=== PATIENT | female | born 1980 | race Two or more races ===

== ENCOUNTER 2018-11-06 13:56 | Emergency (ER) | payer MEDICAID, OTHER ==
[~2018-11-06] VITALS: Ht 157.5 cm; Wt 92.5 kg
[2018-11-06 14:47] LABS: Urine Bacteria FEW /hpf (None Seen); Urine Blood Negative /uL (Negative); Urine Mucus MODERATE (None Seen); Urine Specific Gravity 1.031 (1.001-1.035); Urine WBC 9 /hpf (0 - 5)
[2018-11-06 18:09] VITALS: BP 125/84
== END 2018-11-06 18:15 | disposition home or self-care (01) ==
LOC: ER 13:56
DX: O23.42 Unspecified infection of urinary tract in pregnancy, second trimester (principal); O44.02 Complete placenta previa NOS or without hemorrhage, second trimester; Z3A.16 16 weeks gestation of pregnancy
CPT/HCPCS: 36415; 76805; 81001; 81025; 84702

== ENCOUNTER 2019-04-12 13:30 | Inpatient (IN) | payer MEDICAID ==
[2019-04-12] VITALS (12 sets, daily range): BP systolic 13–155; BP diastolic 60–75
[~2019-04-12] VITALS: Ht 33 cm; Wt 0.5 kg
[2019-04-12] MEDS ORDERED: LACTATED RINGER'S 1,000 ML IV SCH (13:53)
[2019-04-12] MEDS ORDERED: TETRACAINE 1% INJ 2 ML VIAL IJ ONE (14:17)
[2019-04-12 14:34] LABS: Albumin 2.6 g/dL (3.4-5.0); Anion Gap 11 (5-15); Basophils # (auto) 0 uL; Blood Urea Nitrogen 8 mg/dL (7-18); Calcium 8.4 mg/dL (8.5-10.1); Carbon Dioxide 19 mmol/L (21-32); Chloride 110 mmol/L (98-107); Eosinophils # (auto) 0 uL; Glucose 74 mg/dL (74-106); Hemoglobin 9.1 g/dL (12.2-16.2); Lymphocytes # (auto) 1.9 uL; Monocytes # (auto) 0.5 uL; Neutrophils # (auto) 3.8 uL; Nucleated Red Blood Cells % 0.2 %; Potassium 4.1 mmol/L (3.5-5.1); Sodium 140 mmol/L (136-145); White Blood Cell 6.2 10^3/uL (4.4-10.8)
[2019-04-12 14:35] LABS: Basophils % (auto) 0.4 % (0.0-2.0); Eosinophils % (auto) 0.3 % (0.0-7.0); Hematocrit 29.2 % (36.0-46.0); INR < 0.93 (0.9-1.15); Lymphocytes % (auto) 30.3 % (10.0-50.0); Mean Corpuscular Hemoglobin 22.1 pg (28.0-32.0); Mean Corpuscular Hgb Conc. 31.1 g/dL (32.0-36.0); Monocytes % (auto) 8.2 % (0.0-12.0); Neutrophils % (auto) 60.8 % (37.0-80.0); Partial Thromboplastin Time 25.4 sec (23.64-32.05); Platelet Count (auto) 359 10^3/uL (140-450); Red Blood Cells 4.11 10^6/uL (4.0-5.20)
[2019-04-12 14:37] LABS: Alanine Aminotransferase 12 U/L (13-56); Aspartate Aminotransferase 16 U/L (15-37); BUN/Creatinine Ratio 14.3; GFR African American 157 mL/min; GFR Non-African American 129 mL/min
[2019-04-12 14:39] LABS: Alkaline Phosphatase 201 U/L (45-117); Bilirubin, Total 0.3 mg/dL (0.2-1.0); Total Protein 6.8 g/dL (6.4-8.2)
[2019-04-12] MEDS ORDERED: ePHEDrine SULFATE 50 MG/ML AMP ONE (14:54)
[2019-04-12] MEDS ORDERED: PHENYLEPHRINE HCL 10 MG/ML VL ONE (14:54)
[2019-04-12] MEDS ORDERED: OXYTOCIN 10 UNIT/ML 10ML VIAL ONE (14:54)
[2019-04-12] MEDS ORDERED: SODIUM CHLORIDE LOCK 10 ML ONE (14:54)
[2019-04-12] MEDS ORDERED: ceFAZolin 1GM VL ONE (14:57)
[2019-04-12] MEDS ORDERED: MIDAZOLAM HCL 1MG/1ML-2 ML VIAL ONE (15:25)
[2019-04-12] MEDS ORDERED: fentaNYL CITRATE 100 MCG/2 ML VL ONE (15:26)
[2019-04-12] MEDS ORDERED: MORPHINE SULF(PF) 0.5MG/ML 10ML VIAL ONE (15:26)
--- NOTE | 2019-04-12 15:45 | NUR ---
Teaching: Reviewed information in New Beginnings booklet with patient. Discussed benefits of and risks associated with not . Discussed different positions, proper latch, feeding cues, and baby-led . All questions and concerns addressed at this time. latched on, bonding well. Patient verbalized understanding of information.
[2019-04-12] MEDS ORDERED: ONDANSETRON HCL 4 MG/2 ML VIAL IV PRN (16:00)
[2019-04-12] MEDS ORDERED: HYDROmorphone HCL 2 MG/ML VL IV PRN (16:00)
[2019-04-12] MEDS ORDERED: ACETAMINOPHEN IV 1000 MG/100ML (10MG/ML) IV ONE (16:00)
[2019-04-12] MEDS ORDERED: ceFAZolin 1GM/50ML 50 ML IV SCH (16:00)
--- NOTE | 2019-04-12 16:55 | NUR ---
Post Op for LDRP: Received patient from PACU via bed to room 107B. Patient A/A/Ox4, abdominal binder and bilateral SCD's are in place, IV fluids placed on pump and infusing per order, incisional site dressing clean/dry/intact and Gruber Catheter to gravity draining clear yellow urine. Incentive Spirometer at bedside and instruction on proper use with return demonstration done by patient.
[2019-04-12] MEDS ORDERED: ACETAMINOPHEN IV 100 ML IV ONE (17:11)
[2019-04-12] MEDS: LACTATED RINGER'S 1,000 ML IV SCH (17:16)
--- NOTE | 2019-04-12 18:15 | NUR ---
Report given to Titi Antonio RN.
[2019-04-12] MEDS: KETOROLAC TROMETH 15 mg/ml 1ML VL IV SCH (18:41)
--- NOTE | 2019-04-12 18:45 | NUR ---
DRESSING ON INCISION INTACT. DRESSING CLEAN & DRY NO DRAINAGE NOTED. Addendum: 04/12/19 at 1931 by ROBEL BERTRAND RN RN Amended: Links added.
--- NOTE | 2019-04-12 18:45 | NUR ---
Teaching: Reviewed information in New Beginnings booklet with patient. Discussed benefits of and risks associated with not . Discussed different positions, proper latch, feeding cues, and baby-led . Provided information of medication side effects related to . All questions and concerns addressed at this time. Patient verbalized understanding of information.
[2019-04-12] MEDS: ceFAZolin 1GM/50ML 50 ML IV SCH (22:50)
[2019-04-13 03:00] VITALS: BP 108/72
--- NOTE | 2019-04-13 04:00 | NUR ---
PT OOB FOR AMBULATION. BERTO STILL INTACT. HELADIO CARE PROVIDED, UNDERWEAR APPLIED. Addendum: 04/13/19 at 0440 by ROBEL BERTRAND RN RN PT UP OOB WITH HERNESTO STANDBY ASSISTANCE. PT AMBULATING HALLWAYS, ACCOMPANIED BY TYSHAWN.
--- NOTE | 2019-04-13 04:35 | NUR ---
PT BACK TO BED. LINENS AND GOWN CHANGED, SCD'S REAPPLIED. PT RESTING COMFORTABLY AT THIS TIME. NO DISTRESS NOTED. PT ENCOURAGED TO DRINK WATER.
[2019-04-13 05:08] LABS: RPR Non Reactive (Non Reactive)
[2019-04-13 05:28] LABS: Eosinophils # (auto) 0 uL; Eosinophils % (auto) 0.2 % (0.0-7.0); Hemoglobin 7.7 g/dL (12.2-16.2); Mean Corpuscular Volume 71.6 fL (80.0-100.0); Monocytes # (auto) 0.8 uL; White Blood Cell 9.6 10^3/uL (4.4-10.8)
[2019-04-13 05:30] LABS: Basophils # (auto) 0 uL; Basophils % (auto) 0.4 % (0.0-2.0); Hematocrit 24.6 % (36.0-46.0); Lymphocytes # (auto) 1.5 uL; Lymphocytes % (auto) 16.1 % (10.0-50.0); Mean Corpuscular Hemoglobin 22.5 pg (28.0-32.0); Mean Corpuscular Hgb Conc. 31.4 g/dL (32.0-36.0); Monocytes % (auto) 7.9 % (0.0-12.0); Neutrophils # (auto) 7.2 uL; Neutrophils % (auto) 75.4 % (37.0-80.0); Nucleated Red Blood Cells % 0.1 %; Platelet Count (auto) 284 10^3/uL (140-450); Red Blood Cells 3.43 10^6/uL (4.0-5.20); Red Cell Distribution Width 19.2 % (11.8-14.3)
[2019-04-13] MEDS: KETOROLAC TROMETH 15 mg/ml 1ML VL IV SCH ×3 (06:00→12:00)
--- NOTE | 2019-04-13 06:30 | NUR ---
REPORT: REPORT RECEIVED FROM PRODUCTION ZONE LEADER RN TO RESUME CARE OF PT.
[2019-04-13 07:00] VITALS: BP 128/69
[2019-04-13] MEDS: ceFAZolin 1GM/50ML 50 ML IV SCH ×2 (07:00→15:45)
[2019-04-13] MEDS: LACTATED RINGER'S 1,000 ML IV SCH ×3 (08:55→15:53)
[2019-04-13 11:00] VITALS: BP 133/89
[2019-04-13] MEDS ORDERED: HYDROcodone-ACET 5/325MG TAB PO PRN (11:45)
[2019-04-13] MEDS: SIMETHICONE 80 MG CHEWABLE TABLET PO PRN ×2 (12:17→19:24)
[2019-04-13] MEDS: HYDROcodone-ACET 5/325MG TAB PO PRN ×3 (12:18→21:25)
[2019-04-13] MEDS ORDERED: TETANUS-DIPTH-ACEL PERTUSSIS 0.5ML SYRG IM ONE (12:45)
[2019-04-13 15:00] VITALS: BP 129/70
--- NOTE | 2019-04-13 15:58 | NUR ---
THOMSON CATHETER: REMOVED THOMSON CATHETER, 16F WITH ALL FLUID FROM BALLOON ASPIRATED PRIOR AND CATHETER TIP FULLY INTACT. PT OVERALL TOLERATED WELL. DID EMPTY TOTAL OF 2600ML CLEAR YELLOW BEFORE REMOVAL. INSTRUCTED PT TO CALL WHEN NEEDING TO VOID AND TO USE HAT FOR ACCURATE MEASUREMENT. HELADIO-CARE, PAD CHANGE AND LINEN CHANGE DONE. PT ABLE TO ASSIST WITH PER-CARE AND LINEN CHANGE. TOLERATED WELL.
--- NOTE | 2019-04-13 16:16 | NUR ---
DRESSING: REMOVED DRESSING TO ANTERIOR ABDOMEN, OPEN TO AIR WITH NO DRAINAGE, INCISION APPROXIMATED, JOHANN INTACT, NO REDNESS, SWELLING OR PAIN NOTED. PT CONTINUES TO WEAR AN ABDOMINAL BINDER THAT IS IN PLACE AND INCISION OPEN TO AIR.
--- NOTE | 2019-04-13 16:42 | NUR ---
ACTIVITY: PT ASSISTED OUT OF BED, SOCKS APPLIED AND FAMILY AT BEDSIDE. PT WOULD LIKE TO WALK ROOM AND HALLWAYS. PT IN STABLE RANGE AT TIME. DOES STATE PAIN AND MEDICATED WITH NORCO PER MD ORDERS.
[2019-04-13 19:23] VITALS: BP 120/79
[2019-04-13] MEDS: IBUPROFEN 800 MG TAB PO PRN (19:24)
[2019-04-13] MEDS: DOCUSATE SOD 100 MG CAP PO SCH (21:25)
--- NOTE | 2019-04-13 21:30 | NUR ---
PT up ambulating in hallway, steady gait no distress noted
[2019-04-13 23:30] VITALS: BP 119/68
[2019-04-13] MEDS ORDERED: PREN-96 PO (23:40)
[2019-04-14] MEDS: HYDROcodone-ACET 5/325MG TAB PO PRN ×4 (01:32→20:54)
--- NOTE | 2019-04-14 02:30 | NUR ---
PT up ambulating in hallway, steady gait no distress noted
[2019-04-14 03:00] VITALS: BP 119/68
[2019-04-14] MEDS: IBUPROFEN 800 MG TAB PO PRN ×3 (03:43→23:00)
[2019-04-14 06:30] VITALS: BP 115/74
[2019-04-14 08:39] LABS: Basophils # (auto) 0 uL; Eosinophils # (auto) 0.1 uL; Hemoglobin 7.4 g/dL (12.2-16.2); Monocytes # (auto) 0.8 uL; Neutrophils # (auto) 6.3 uL; White Blood Cell 8.5 10^3/uL (4.4-10.8)
[2019-04-14 08:41] LABS: Basophils % (auto) 0.5 % (0.0-2.0); Eosinophils % (auto) 0.8 % (0.0-7.0); Hematocrit 23.3 % (36.0-46.0); Lymphocytes # (auto) 1.3 uL; Lymphocytes % (auto) 15.3 % (10.0-50.0); Mean Corpuscular Hemoglobin 22.7 pg (28.0-32.0); Mean Corpuscular Hgb Conc. 31.8 g/dL (32.0-36.0); Mean Corpuscular Volume 71.4 fL (80.0-100.0); Monocytes % (auto) 9.3 % (0.0-12.0); Neutrophils % (auto) 74.1 % (37.0-80.0); Platelet Count (auto) 289 10^3/uL (140-450); Red Blood Cells 3.27 10^6/uL (4.0-5.20); Red Cell Distribution Width 19.2 % (11.8-14.3)
--- NOTE | 2019-04-14 09:00 | NUR ---
PT UP AMBULATING HALLWAY VIA STEADY GAIT. NO DISTRESS NOTED.
[2019-04-14] MEDS: DOCUSATE SOD 100 MG CAP PO SCH ×2 (09:56→22:35)
--- NOTE | 2019-04-14 10:15 | NUR ---
SOLID WASTE DISPOSAL MANAGER ELADIO Shelby FROM SOLID WASTE DISPOSAL MANAGER AT PT BEDSIDE FOR CONSULT. PER ELADIO Shelby. SOLID WASTE DISPOSAL MANAGER, PT HAS ALL APPROPRIATE SUPPLIES TO CARE FOR INFANT, AND HAS GOOD SUPPORT. PT CLEARED BY SOLID WASTE DISPOSAL MANAGER. WILL CONTINUE TO MONITOR.
[2019-04-14 11:15] VITALS: BP 122/79
--- NOTE | 2019-04-14 11:25 | NUR ---
DR. BHAKTA NOTIFIED OF PTS CBC RESULTS. ORDERS RECEIVED TO CONTINUE WITH CURRENT PLAN OF CARE. WILL CONTINUE TO MONITOR.
[2019-04-14 14:50] VITALS: BP 118/80
--- NOTE | 2019-04-14 15:46 | NUR ---
IV removal Order received for IV removal from Dr. Reyez. IV DC'd with clean sterile technique, catheter fully intact. Pressure dressing applied to site. Patient tolerated well.
--- NOTE | 2019-04-14 16:59 | NUR ---
Per SS consult for [place] depression score of 12, last question score of 0. Pt stated that she has been very emotional during this due to recently moving from [place] to the [facility]. Pt states she will not harm herself or her new born. Pt states she has two other children at home and she never felt that way. Pt was given resources for family therapy and refused them. Pt states she has family support and she has supplies for baby. Pt states she has an appointment on Wednesday04/17/[address] at [address] Reed Retail Beauty Specialist. Pt states she is enrolled on [facility]. Informed RN Johana. Addendum: 04/14/19 at 1708 by ELADIO ANDERSON Amended: Links added.
[2019-04-14 19:30] VITALS: BP 129/82
[2019-04-14] MEDS: SIMETHICONE 80 MG CHEWABLE TABLET PO PRN (22:35)
[2019-04-14 22:59] VITALS: BP 114/72
[2019-04-15 03:15] VITALS: BP 116/69
[2019-04-15] MEDS: HYDROcodone-ACET 5/325MG TAB PO PRN ×2 (03:27→08:55)
[2019-04-15 07:00] VITALS: BP 127/68
--- NOTE | 2019-04-15 09:30 | NUR ---
Discharge: Discharge instructions given as ordered. Pt encouraged to follow up with CASE THERAPIST as instructed. All questions and concerns addressed. Patient verbalized understanding. Medication reconciliation completed and copy given to patient. All required/requested vaccines given and copies of vaccinations given to patient. Patient encouraged to prepare to depart unit.
[2019-04-15] MEDS: DOCUSATE SOD 100 MG CAP PO SCH (10:00)
--- NOTE | 2019-04-15 10:00 | NUR ---
Discharge: Patient taken to vehicle ambulatory with all personal belongings, accompanied by staff and family member. No distress noted at time of departure, no adverse changes in status since initial assessment.
== END 2019-04-15 17:38 | disposition home or self-care (01) | DRG 540 ==
LOC: LDRP 13:30 → OBSVTOIN 13:55 → LDRP 14:49
PROVIDERS: ADMIT Specialist; ATTEND Specialist
PROC: 10D00Z1 Extraction of Products of Conception, Low, Open Approach (ICD-10-PCS; principal; 2019-04-12 14:35)
PROC: 3E0234Z Introduction of Serum, Toxoid and Vaccine into Muscle, Percutaneous Approach (ICD-10-PCS; 2019-04-13)
DX: O34.211 Maternal care for low transverse scar from previous cesarean delivery (principal); G89.29 Other chronic pain; O99.62 Diseases of the digestive system complicating childbirth; K21.9 Gastro-esophageal reflux disease without esophagitis; Z37.0 Single live birth; Z3A.38 38 weeks gestation of pregnancy; Z23 Encounter for immunization
CPT/HCPCS: 36415; 51702; 59025; 80053; 81002; 84112; 85025; 85610; 85730; 86592; 86850; 86900; 86901; 90715; 96361; 96366; 96375; G0378; J0131; J0690; J2250; J2405; J2590

== ENCOUNTER 2021-04-07 05:57 | Emergency (ER) | payer SELFPAY ==
[~2021-04-07] VITALS: Ht 157.5 cm; Wt 97.5 kg
[~2021-04-07 05:57] MED LIST: PREN-96 PO
[2021-04-07 07:06] LABS: Urine Bacteria MOD /hpf (None Seen); Urine Blood 1+ /uL (Negative); Urine Mucus FEW (None Seen); Urine Specific Gravity 1.016 (1.001-1.035); Urine WBC 270 /hpf (0 - 5)
[2021-04-07] MEDS ORDERED: cefTRIAXone 1GM/50ML D5W 50 ML IV ONE (07:45)
[2021-04-07] MEDS ORDERED: SODIUM CHLORIDE 0.9% 1,000 ML IV ONE ×2 (07:45)
[2021-04-07 07:56] LABS: Basophils # (auto) 0 10 ^3/uL (0-0.2); Basophils % (auto) 0.3 % (0.0-2.0); Eosinophils # (auto) 0 10 ^3/uL (0-0.8); Eosinophils % (auto) 0.1 % (0.0-7.0); Hematocrit 39.6 % (36.0-46.0); Hemoglobin 13.9 g/dL (12.2-16.2); Lymphocytes # (auto) 0.7 10 ^3/uL (0.4-5.4); Lymphocytes % (auto) 5.1 % (10.0-50.0); Mean Corpuscular Hemoglobin 31.2 pg (28.0-32.0); Mean Corpuscular Hgb Conc. 35.1 g/dL (32.0-36.0); Mean Corpuscular Volume 88.9 fL (80.0-100.0); Monocytes # (auto) 1.1 10 ^3/uL (0-1.3); Monocytes % (auto) 8.6 % (0.0-12.0); Neutrophils # (auto) 11.4 10 ^3/uL (1.6-8.6); Neutrophils % (auto) 85.9 % (37.0-80.0); Red Blood Cells 4.45 10^6/uL (4.0-5.20); Red Cell Distribution Width 13.6 % (11.8-14.3); White Blood Cell 13.3 10^3/uL (4.4-10.8)
[2021-04-07 08:22] LABS: Albumin 3.4 g/dL (3.4-5.0); BUN/Creatinine Ratio 8.1; Calcium 8.3 mg/dL (8.5-10.1); Potassium 3.2 mmol/L (3.5-5.1)
[2021-04-07 08:25] LABS: Bilirubin, Total 0.8 mg/dL (0.2-1.0); Total Protein 7.8 g/dL (6.4-8.2)
[2021-04-07 09:54] VITALS: BP 111/81
== END 2021-04-07 10:00 | disposition home or self-care (01) ==
LOC: ER 05:57
DX: N39.0 Urinary tract infection, site not specified (principal)
CPT/HCPCS: 36415; 74176; 80053; 81001; 83690; 84702; 85025; 85049; 96365; 99284; J0696; J7030

== ENCOUNTER 2022-06-28 09:41 | Emergency (ER) | payer MEDICAID ==
[~2022-06-28] VITALS: Ht 157.5 cm; Wt 99.3 kg
[2022-06-28 11:35] LABS: Urine Bacteria NONE SEEN /hpf (None Seen); Urine Blood Negative /uL (Negative); Urine Mucus FEW (None Seen); Urine Specific Gravity 1.032 (1.001-1.035); Urine WBC 6 /hpf (0 - 5)
[2022-06-28 11:36] LABS: Albumin 3.9 g/dL (3.4-5.0); BUN/Creatinine Ratio 15.1; Calcium 8.5 mg/dL (8.5-10.1); Potassium 3.9 mmol/L (3.5-5.1)
[2022-06-28 11:37] LABS: Basophils # (auto) 0 10 ^3/uL (0-0.2); Basophils % (auto) 0.4 % (0.0-2.0); Eosinophils # (auto) 0 10 ^3/uL (0-0.8); Eosinophils % (auto) 0.2 % (0.0-7.0); Hematocrit 39.8 % (36.0-46.0); Hemoglobin 13.1 g/dL (12.2-16.2); Lymphocytes # (auto) 0.9 10 ^3/uL (0.4-5.4); Lymphocytes % (auto) 17.3 % (10.0-50.0); Mean Corpuscular Hemoglobin 29.1 pg (28.0-32.0); Mean Corpuscular Hgb Conc. 32.9 g/dL (32.0-36.0); Mean Corpuscular Volume 88.4 fL (80.0-100.0); Monocytes # (auto) 0.3 10 ^3/uL (0-1.3); Monocytes % (auto) 5.4 % (0.0-12.0); Neutrophils # (auto) 4.2 10 ^3/uL (1.6-8.6); Neutrophils % (auto) 76.7 % (37.0-80.0); Nucleated Red Blood Cells % 0.1 %; Red Cell Distribution Width 14.2 % (11.8-14.3); White Blood Cell 5.4 10^3/uL (4.4-10.8)
[2022-06-28 11:39] LABS: Bilirubin, Total 0.5 mg/dL (0.2-1.0)
[2022-06-28] MEDS ORDERED: NITR-87 PO (13:52)
[2022-06-28 14:57] VITALS: BP 122/69
== END 2022-06-28 14:57 | disposition home or self-care (01) ==
LOC: ER 09:41
DX: R00.2 Palpitations (principal); N39.0 Urinary tract infection, site not specified; E03.9 Hypothyroidism, unspecified; Z79.899 Other long term (current) drug therapy
CPT/HCPCS: 36415; 71045; 80053; 81001; 84484; 85025; 93005

== ENCOUNTER → 2023-10-05 | Outpatient (CLI) | payer MEDICAID ==
[~2023-10-05] MED LIST changes: +NITR-87 PO
== END | disposition home or self-care (01) ==
LOC: Rad HDHVI 15:53
PROVIDERS: ATTEND Internal Medicine Cardiovascular Disease
DX: I10 Essential (primary) hypertension (principal)
CPT/HCPCS: 93306

== ENCOUNTER → 2023-10-20 | Outpatient (CLI) | payer MEDICAID ==
[~2023-10-20] VITALS: Ht 157.5 cm; Wt 108.9 kg
== END | disposition home or self-care (01) ==
LOC: Rad HDHVI 09:56
PROVIDERS: ATTEND Internal Medicine Cardiovascular Disease
DX: R00.0 Tachycardia, unspecified (principal); R00.2 Palpitations; R07.89 Other chest pain; E78.00 Pure hypercholesterolemia, unspecified; Z79.899 Other long term (current) drug therapy; Z86.16 Personal history of COVID-19; Z82.49 Family history of ischemic heart disease and other diseases of the circulatory system
CPT/HCPCS: 78452; 93017; 96374; A9500

== ENCOUNTER 2025-06-18 17:33 | Emergency (ER) | payer MEDICAID ==
[~2025-06-18] VITALS: Ht 157.5 cm; Wt 110.4 kg
[2025-06-18 17:42] VITALS: BP 155/101; RESP 18; TEMP 97.4; O2SAT 100
--- NOTE | 2025-06-18 17:44 | ECG ---
[facility] Test Date: 2025-06-18 Test Time: 17:39:06 Pat Name: DOYLE BURTON Department: [facility] ED Patient ID: [id number] Room: Gender: F Workforce Advisor: GP : 1980 Requested By: EMERGENCY EMERGENCY Order Number: [id number] Reading MD: Booker Faith Measurements Intervals [place] Rate: 95 P: 52 ME: 136 QRS: 112 QRSD: 84 T: 11 QT: 362 QTc: 455 Interpretive Statements Sinus rhythm Right axis deviation Low voltage, precordial leads Borderline T abnormalities, anterior leads Electronically Signed On 06-20-2025 9:55:59 PDT by Booker Faith Please click the below link to view image of tracing.
[2025-06-18 18:27] LABS: Chloride 105 mmol/L (98-107); Hematocrit 40.4 % (36.0-46.0); Hemoglobin 14.2 g/dL (12.2-16.2); Mean Corpuscular Hemoglobin 31.7 pg (28.0-32.0); Mean Corpuscular Volume 90.4 fL (80.0-100.0); Nucleated Red Blood Cells % 0.0 %; Potassium 3.7 mmol/L (3.5-5.1); Sodium 139 mmol/L (136-145)
[2025-06-18 18:28] LABS: Anion Gap 10 (5-15); Carbon Dioxide 24 mmol/L (20-31)
[2025-06-18 18:29] LABS: Calcium 9.2 mg/dL (8.7-10.4)
[2025-06-18 18:33] LABS: BUN/Creatinine Ratio 12.3 (10.0-20.0); Glucose 102 mg/dL (74-106)
[2025-06-18 18:35] LABS: Blood Urea Nitrogen 8 mg/dL (9-23)
--- NOTE | 2025-06-18 18:41 | DVH ---
CHEST RADIOGRAPH Indication: cp Technique: Single frontal view of the chest was obtained Comparison: CHEST PORTABLE on DOS: 06/28/22 FINDINGS: Lines and Tubes: None Lungs: No focal consolidation. Pleura: No effusion. No pneumothorax. Cardiomediastinal contours: Unremarkable Bones: No acute osseous abnormality. IMPRESSION: 1. No acute cardiopulmonary disease. 2. Significant change from 06/28/2022.
--- NOTE | 2025-06-18 18:54 | ED.PDOC ---
History of Present Illness HPI Comments 44-year-old Uzbek-speaking female who presents with chief complaint of chest pain. Patient is a poor historian. She reports on sudden, unprovoked, and atraumatic onset of pain, last night, while at rest. She is unable to recall what exact time or or which she doing at the time of incident. She comments on previous isolated episode of chest pain a couple of days ago which resolved on its own. Today, patient reports on pain still persisting. She describes it as sharp in quality and worse with movement and deep inspirations. No endorsement of any significant history aside from arthritis and thyroidectomy in 2014. Denies of any shortness of breath, cough, congestion, fever, chills or further associated symptoms. REVIEW OF SYSTEMS: General: No fever, no chills, or fatigue HEENT: No sore throat, no earache, no congestion, no neck pain. Cardiac: Chest pain. No palpitations. Lungs: No shortness of breath, no cough. GI: No nausea, no vomiting, no diarrhea, no constipation, no abdominal pain : No dysuria, frequency, or urgency. No hematuria. Musculoskeletal: No joint pain , no joint swelling, no extremity edema. Skin: No rash, no itching. Neuro: No headache, no dizziness, no weakness PHYSICAL EXAM: General: Awake, alert and oriented. No acute distress. Skin: Skin in warm, dry and intact. Appropriate color for ethnicity. HEENT: The head is normocephalic and atraumatic. Conjunctivae are clear without exudates or hemorrhage. Sclera is non-icteric. EOM are intact. No signs of nystagmus. Eyelids are normal in appearance without swelling or lesions. Oral mucosa is pink and moist Neck: The neck is supple with normal range of motion. No JVD. Cardiac: Heart rate and rhythm are normal. No murmurs, gallops, or rubs are auscultated. Respiratory: No signs of respiratory distress. Lung sounds are clear in all lobes bilaterally without rales, rhonchi, or wheezes. Extremities: Upper and lower extremities are atraumatic in appearance without deformity or edema. Neurological: The patient is awake, alert and oriented to person, place, and time with normal speech. Speech is clear. There is no facial asymmetry. Psychiatric: Appropriate mood and affect. Good judgement and insight. Chief Complaint: Chest Pain Time Seen by : 18:30 Reviewed Notes: Nurses Notes, Medications Allergies: Coded Allergies: NO KNOWN ALLERGIES (Unverified , 11/06/18) Home Meds Active Scripts Nitrofurantoin Monohydrate Mac (Macrobid) 100 Mg Cap, 100 MG PO BID for 7 Days, #14 CAP Prov:GENA LYONS MD 06/28/22 Reported Medications Vit W/ Ferrous Fumara ( One Daily) Daily Tab, 1 TAB PO DAILY, #90 TAB 3 Refills 04/13/19 Information Source: Patient Mode of Arrival: Ambulatory Past Medical History PAST MEDICAL HISTORY: Arthritis, Thyroid Surgical History: , Thyroidectomy HEAD CONCIERGE History: No Pertinent HEAD CONCIERGE History Family History Family History: No family hx of HTN Social History Smoker: Non-Smoker Alcohol: Denies ETOH Use Drugs: Denies Drug Use Lives In: Home Was a procedure done? Was a procedure done?: No EKG EKG #1: Pulse Rate (adult): 95 [place]: RAD Cardiac Rhythm: NSR Block: None Hypertrophy: None ST: Normal Comments No STEMI EKG #2: Pulse Rate (adult): 80 [place]: Normal Cardiac Rhythm: NSR Block: None Hypertrophy: None ST: Normal EKG #3: Pulse Rate (adult): 67 [place]: Normal Cardiac Rhythm: NSR Block: None Hypertrophy: None ST: Normal Differential Dx Considerations may include: Differential diagnoses considered include acute ischemic coronary syndrome, aortic dissection, cardiac tamponade, mediastinitis, pulmonary embolus, pneumothorax, tension pneumothorax, esophageal rupture, coronary artery vas ospasm, myocarditis, pericarditis, pneumonia, pulmonary edema, esophageal tear, pancreatitis, aortic stenosis, dilated cardiomyopathy, hypertrophic cardiomyopathy, mitral valve prolapse, malignancy, pleuritis, pneumomediastinum, primary pulmonary hypertension, cholecystitis, esophageal spasm, esophagus, gastritis, GERD, peptic ulcer disease, costochondritis, fibromyalgia, rib fract ure, herpes zoster, radicular syndromes, thoracic outlet syndrome, somatization. X-Ray, Labs, Meds, VS Vital Signs Date Time Temp Pulse Resp B/P (MAP) Pulse Ox O2 Delivery O2 Flow Rate FiO2 06/18/25 20:51 67 06/18/25 20:42 68 06/18/25 18:54 80 06/18/25 18:50 80 06/18/25 17:42 97.4 95 18 155/101 100 97.4 06/18/25 17:39 95 Lab Test 06/18/25 18:44 06/18/25 17:54 Range/Units Troponin I High Sensitivity < 3 L < 3 L </=34 ng/L White Blood Count 8.0 4.4-10.8 10^3/uL Red Blood Count 4.47 4.0-5.20 10^6/uL Hemoglobin 14.2 12.2-16.2 g/dL Hematocrit 40.4 36.0-46.0 % Mean Corpuscular Volume 90.4 80.0-100.0 fL Mean Corpuscular Hemoglobin 31.7 28.0-32.0 pg Mean Corpuscular Hemoglobin Concent 35.0 32.0-36.0 g/dL Red Cell Distribution Width 13.9 11.8-14.3 % Platelet Count 353 140-450 10^3/uL Mean Platelet Volume 8.4 6.9-10.8 fL Neutrophils (%) (Auto) 70.6 37.0-80.0 % Lymphocytes (%) (Auto) 20.8 10.0-50.0 % Monocytes (%) (Auto) 7.5 0.0-12.0 % Eosinophils (%) (Auto) 0.7 0.0-7.0 % Basophils (%) (Auto) 0.4 0.0-2.0 % Neutrophils # (Auto) 5.7 1.6-8.6 10 ^3/uL Lymphocytes # (Auto) 1.7 0.4-5.4 10 ^3/uL Monocytes # (Auto) 0.6 0-1.3 10 ^3/uL Eosinophils # (Auto) 0.1 0-0.8 10 ^3/uL Basophils # (Auto) 0 0-0.2 10 ^3/uL Nucleated Red Blood Cells 0.0 % Sodium Level 139 136-145 mmol/L Potassium Level 3.7 3.5-5.1 mmol/L Chloride Level 105 98-107 mmol/L Carbon Dioxide Level 24 20-31 mmol/L Anion Gap 10 5-15 Blood Urea Nitrogen 8 L 9-23 mg/dL Creatinine 0.65 0.550-1.02 mg/dL Glomerular Filtration Rate Calc 112 >90 mL/min BUN/Creatinine Ratio 12.3 10.0-20.0 Serum Glucose 102 74-106 mg/dL Calcium Level 9.2 8.7-10.4 mg/dL B-Type Natriuretic Peptide 33.71 0-100 pg/mL Current Medications Medications (Trade) Dose Ordered Sig/Leonela Route Start Time Stop Time Status Last Admin Aspirin 324 mg ONCE ONCE PO 06/18/25 18:15 06/18/25 18:16 DC 06/18/25 21:00 [place] [address] Ph: [phone] DIAGNOSTIC IMAGING Diagnostic Imaging Report : [id number] Signed PATIENT: DOYLE BURTON ACCT: [id number] UNIT: [id number] : 1980 LOC: ER ROOM / BED: / AGE / SEX: 44 / F ADM STATUS: REG ER SERVICE 08 ORDERING PHYSICIAN: IGNACIO BROWN MD PROCEDURE(s): CXR1 - CHEST XRAY 1 VIEW REASON: cp ORDER NUMBER(s): [id number], ACCESSION NUMBER(s): [id number] CHEST RADIOGRAPH Indication: cp Technique: Single frontal view of the chest was obtained Comparison: CHEST PORTABLE on DOS: 06/28/22 FINDINGS: Lines and Tubes: None Lungs: No focal consolidation. Pleura: No effusion. No pneumothorax. Cardiomediastinal contours: Unremarkable Bones: No acute osseous abnormality. IMPRESSION: 1. No acute cardiopulmonary disease. 2. Significant change from 06/28/2022. ATED BY: LUCAS HAYES Jr., DO DICTATED DATE/TIME: 06/18/251838 SIGNED BY: LUCAS HAYES Jr., DO SIGNED DATE/TIME: 06/18/251838 CC: Time of 1ST Reevaluation: 19:00 Reevaluation 1ST: Unchanged Patient Education/Counseling: Treatment, Need For Follow Up Family Education/Counseling: No Family Present SEPSIS Sepsis Screen Date sepsis recognized/suspect: Jun 18, 2025 Time Sepsis recognized/suspect: 1743 Recent Procedure: No On Antibiotic Therapy: No Respiratory Rate >20: No Heart Rate >90: Yes Temp<36 C (96.8 F) or >38.3 C: No SBP <90 or MAP <65 mmHG: No New Acute Mental Status Change: No Is the patient on CPAP, BIPAP,: No Physician Orders Electrocardigram (06/18/25 18:43) Electrocardigram (06/18/25 20:43) Urinalysis (06/18/25 17:48) Chest Xray 1 View (06/18/25 18:09) Vital Signs Q1HR (06/18/25 18:09) Saline Lock (06/18/25 18:09) Lumber Driver (06/18/25 ) Blood Pressure (06/18/25 ) Vital Signs Date Time Temp Pulse Resp B/P (MAP) Pulse Ox O2 Delivery O2 Flow Rate FiO2 06/18/25 20:51 67 06/18/25 20:42 68 06/18/25 18:54 80 06/18/25 18:50 80 06/18/25 17:42 97.4 95 18 155/101 100 97.4 06/18/25 17:39 95 Laboratory Tests Test 06/18/25 17:54 White Blood Count 8.0 10^3/uL (4.4-10.8) Medications Medications Dose Ordered Sig/Leonela Route Start Time Stop Time Status Last Admin Dose Admin Aspirin 324 mg ONCE ONCE PO 06/18/25 18:15 06/18/25 18:16 DC 06/18/25 21:00 Departure 1 Departure Time of Disposition: 21:00 Impression: Primary Impression: Chest pain Additional Impression: Elevated blood pressure reading Disposition: 01 HOME / SELF CARE / HOMELESS Condition: Stable Additional Instructions: INSTRUCCIONES DE JI DE Urgencias Instrucciones: Marija atentamente todas las instrucciones proporcionadas en lexus paquete. Aunque le hayan dado el ji del Departamento de Emergencias, esto no significa que tenga un "certificado de buena jerel". [] Hoy no se harden realizado ningn diag nstico definitivo para mikal sntomas. Es posible que ests en proceso de desarrollar grecia enfermedad grave. Es por eso que debe regresar al servicio de urgencias sin falta si presenta algn sntoma nuevo o que empeora (especialmente si mikal sntomas incluyen dolor en el pecho, dificultad para respirar, dolor abdominal, fiebre, dolor de katelyn, confusin, dificultad para osiris o caminar). Tambin es muy importante que consulte a un mdico de atencin primaria dentro de los prximos 3 a 5 wilkins para realizar un seguimiento. Si no puede conseguir grecia hari, regrese al servicio de urgencias para grecia nueva evaluacin. Hoy tuviste grecia lectura de presin arterial elevada. La hipertensin no tratada puede tener consecuencias graves. Sin embargo, necesitas grecia hari de seguimiento para volver a revisar tu presin arterial y determinar si necesitas tratamiento o no. Haz grecia hari con tu proveedor de atencin primaria para esto dentro de la prxima semana. Dolor en el pecho: Instrucciones de cuidado Descripcin general Hay muchas cosas que pueden causar dolor en el pecho. Algunas no son graves y mejoran por s solas en unos wilkins. Sin embargo, algunos tipos de dolor en el pecho requieren ms pruebas y tratamiento. Es posible que hudson mdico le haya recomendado grecia visita de seguimiento en los prximos wilkins. Si no mejora, es posible que necesite ms pruebas o tratamiento. Aunque hudson mdico le haya dado de ji, debe estar atento a cualquier problema. El mdico le realiz grecia revisin exhaustiva, david a veces pueden surgir prob lemas ms adelante. Si presenta sntomas nuevos o si estos no mejoran, busque atencin mdica de inmediato. Si tiene un dolor o presin en el pecho peor o diferente que dura ms de 5 minutos o si se desmay (perdi el conocimiento), llame al 911 o busque otra ayuda de emergencia de inmediato. Grecia visita mdica es solo un paso en hudson tratamiento. Incluso si se siente mejor, debe seguir las recomendaciones de hudson mdico, francois asistir a todas las citas de seguimiento sugeridas y cody los medicamentos exactamente francois se le indique. [place] le ayudar a recuperarse y a prevenir problemas futuros. Accounts Receivable Collector puedes cuidarte en casa? Descansa hasta que te sientas mejor. [place] hudson medicamento exactamente francois se lo recetaron. Llame a hudson mdico si vicki que tiene algn problema con hudson medicamento. No conduzca despus de cody un analgsico recetado. Cundo debes pedir ayuda? Llame al si: Te desmayaste (perdiste el conocimiento). Tienes dificultad grave para respirar. Tiene sntomas de un ataque cardaco. Estos pueden incluir: Dolor o presin en el pecho, o grecia sensacin extraa en el pecho. Transpiracin. Dificultad para respirar. Nuseas o vmitos. Dolor, presin o grecia sensacin extraa en la espalda, el garima, la mandbula o la parte superior del abdomen o en audelia o ambos hombros o brazos. Mareo o debilidad repentina. Un ritmo cardaco rpido o irregular. Despus de llamar al 911 , el operador podra indicarle que mastique grecia aspirina para adultos o de 2 a 4 aspirinas de dosis baja. Espere la ambulancia. No intente conducir. Llame a hudson mdico ahora o busque atencin mdica inmediata si: Tienes alguna dificultad para respirar. Tiene un dolor en el pecho nuevo o diferente. Se siente mareado o aturdido o francois si se pudiera desmayar. Preste atencin de cerca a los cambios en hudson jerel y asegrese de comunicarse con hudson mdico si no mejora francois se esperaba. Crditos para el dolor de pecho: Instrucciones de cuidado Actualizado al: 2023 Autor: Personal de [employer] Junta de revisin clnica Toda la educacin de [employer] es revisada por un equipo que incluye mdicos, enfermeras, profesionales avanzados, dietistas registrados y otros profesionales de la jerel. Discharged With: Self Comments MDM: 44-year-old female with 1 day of chest pain Serial EKG negative for signs of ischemia. Serial High sensitivity troponin negative. CXR shows no acute process. Presentation not suggestive of acute coronary syndrome, pulmonary embolism or aortic dissection. Patient improved at time of discharge. Patient has not been hypoxic, in respiratory distress or dyspneic during the ED observation. Patient able to ambulate without difficulty. Patient felt stable for discharge to follow up with PCP promptly. Patient advised to return to the ED with any new, worsening or concerning symptoms or inability to follow up with PCP. Extensive evaluation was performed in attempt to identify or rule out: (See differential diagnosis section) The following tests were ordered, and results were reviewed by me and discussed with patient: (See diagnostic results section) The following test were independently interpreted by me: EKG I reviewed and agreed with the following test results read by other providers: Chest x-ray I reviewed the following notes from the pt's past medical encounters: June 28, 2022 encounter for palpitations Additional information was gathered from interviewing the following independent historians: N/A Decision regarding hospitalization or escalation of hospital level of care: Risks and benefits of admission for further treatment of patient's condition was considered however due to patient's stable condition patient will be discharged to follow up closely or return to care for worsening of condition or inability to follow up. Critical Care Note Critical Care Time?: No Stability Stability form required: No Heart Score Heart Score: Heart Score Response (Comments) Value History Slightly Suspicious 0 EKG Normal 0 Age <45 0 Risk Factors No known risk factors 0 Troponin Normal limit 0 Total 0 I personally scribed for IGNACIO BROWN MD ([email or web address]) on 06/18/25 at 18:54. El ectronically submitted by Javier Naik ([email or web address]). I personally scribed for IGNACIO BROWN MD ([email or web address]) on 06/18/25 at 18:55. Electronically submitted by Javier Naik ([email or web address]). I personally scribed for IGNACIO BROWN MD ([email or web address]) on 06/18/25 at 18:57. Electronically submitted by Javier Naik ([email or web address]). I personally scribed for IGNACIO BROWN MD ([email or web address]) on 06/18/25 at 20:51. Electronically submitted by Javier Naik ([email or web address]). IGNACIO BROWN MD Jun 18, 2025 18:54
[2025-06-18 20:51] VITALS: PULSE 67
--- NOTE | 2025-06-19 01:45 | ECG ---
[facility] Test Date: 2025-06-18 Test Time: 18:50:12 Pat Name: DOYLE BURTON Department: [facility] ED Patient ID: [facility]-[id number] Room: Gender: F Senior Business Development Analyst: farzana : 1980 Requested By: EMERGENCY EMERGENCY Order Number: [id number] Reading MD: Booker Faith Measurements Intervals [place] Rate: 80 P: 48 UT: 111 QRS: 97 QRSD: 95 T: 48 QT: 381 QTc: 440 Interpretive Statements Sinus rhythm Borderline short UT interval Borderline right axis deviation Low voltage, precordial leads Electronically Signed On 06-20-2025 9:56:32 PDT by Booker Faith Please click the below link to view image of tracing.
--- NOTE | 2025-06-19 06:36 | ECG ---
[facility] Test Date: 2025-06-18 Test Time: 20:42:24 Pat Name: DOYLE BURTON Department: [facility] ED Patient ID: [id number] Room: Gender: F Construction Technology Instructor: BRUCE : 1980 Requested By: EMERGENCY EMERGENCY Order Number: [id number] Reading MD: Booker Faith Measurements Intervals [place] Rate: 68 P: 64 [place]: 135 QRS: 100 QRSD: 95 T: 52 QT: 412 QTc: 439 Interpretive Statements Sinus rhythm Right axis deviation Low voltage, precordial leads Electronically Signed On 06-20-2025 9:57:05 PDT by Booker Faith Please click the below link to view image of tracing.
== END 2025-06-18 23:56 | disposition home or self-care (01) ==
LOC: ER 17:33
DX: R07.89 Other chest pain (principal); R03.0 Elevated blood-pressure reading, without diagnosis of hypertension; Z90.89 Acquired absence of other organs; Z79.899 Other long term (current) drug therapy
CPT/HCPCS: 36415; 71045; 80048; 83880; 84484; 85025; 93005